=== PATIENT | female | born 1970 | race Caucasian/White ===

== ENCOUNTER 2025-04-09 15:48 | Outpatient (AMB) | payer BC, SELFPAY ==
--- NOTE | 2025-04-09 16:02 | A.OFFPC_ITS ---
Vital Signs 04/09/25 16:07 Height 5 ft 3.78 in Weight 171 lb BMI 29.6 BP 117/67 Respiration 14 Pulse 66 Pulse Source Pulse Oximeter Temp 97.5 F Temp Source Temporal Artery Scan Pulse Oximetry (%) 95 Oxygen Delivery Method Room Air Intake Visit Reasons: establish care Price Lister Required: No Accompanied by: Self / Same As Patient Allergies No Known Allergies Allergy (Verified 04/09/25 16:24) Medication List - Last Reconciled 04/09/25 by Jamila Chase PA-C fexofenadine (Maida Allergy) 180 mg PO DAILY Tobacco use date assessed: 04/09/25 Dental Screening Dental Screen Date: 04/09/25 Did you have a dental visit in the last 12 months?: Yes Did you have a dental problem in the last 6 months where you did not have access to dental care?: No Was dental information given to patient?: Patient has dentist HPI [facility] care HPI Details The patient is a 54-year-old female presenting to [facility]. Has a history of allergies. Maida is her choice of medication for allergy relief. She also presents with a significant history of food allergies, including reactions to avocados, peaches, nectarines, cherries, apples, carrots, and celery, with progressive inability to tolerate them even when cooked. Additionally, lactose intolerance necessitates careful consideration in her diet. The patient denies any chronic diseases such as hypertension, diabetes, or mental health issues, and no family history of colon cancer was reported. She expresses interest in colorectal cancer screening, favoring colonoscopy over other methods. A potential thyroid nodule was perceived upon neck palpation, warranting a diagnostic thyroid ultrasound. 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 - No mention of smoking, alcohol, or jimmy g use. - Patient's diet includes management of food allergies and lactose intolerance. [facility] Medical History (Updated 04/09/25 @ 16:37 by Jamila Chase PA-C) Overweight with body mass index (BMI) of 29 to 29.9 in adult Allergy, food Numerous moles Colon cancer screening History of mammogram Establishing care with new doctor, encounter for Family History Father Cancer Heart problem BP (high blood pressure) Mother No problems noted. Social History Housing: House Alcohol intake: current Alcohol intake frequency: a few times a week Patient Tobacco Use Status: Never used Tobacco service: No Current occupational status: employed Cognitive needs: No Hearing needs: No Vision needs: Yes (rx glasses) Questionnaire PHQ-9 Over the last 2 weeks, how often have you been bothered by any of the following problems? 1. Little interest or pleasure in doing things: not at all 2. Feeling down, depressed, or hopeless: not at all 3. Trouble falling or staying asleep, or sleeping too much: not at all 4. Feeling tired or having little energy: not at all 5. Poor appetite or overeating: not at all 6. Feeling bad about yourself - or that you are a failure or have let yourself or your family down: not at all 7. Trouble concentrating on things, such as reading the newspaper or watching television: not at all 8. Moving or speaking so slowly that other people could have noticed. Or the opposite - being so fidgety or restless that you have been moving around a lot more than usual: not at all 9. Thoughts that you would be better off or of hurting yourself in some way: not at all Total score: 0 Depression Screening Interpretation: Negative Depression Screening Done: Yes 45309 - PHQ-9 Billing: Yes Source: Developed by Drs. Heladio Barriga, Rama Martinez, Alejandro Neil and colleagues, with an educational braulio from [employer]. Thrive Questionnaire Date Thrive assessed: 04/09/25 I am a: Patient What is your living situation today?: I have a steady place to live Within the past 12 months, did the food you bought not last and you didn't have the money to get more?: Never true Within the past 12 months, did you worry whether your food would run out before you got money to buy more?: Never true Do you have trouble paying for medicines?: No Do you have trouble getting transportation to medical appointments?: No Do you have trouble paying your heating and electricity bill?: No Do you have trouble taking care of your child, family member or friend?: No Do you have trouble with day-to-day activities such as bathing, preparing meals, shopping, managing finances, etc.?: No Are you currently unemployed and looking for a job?: No Are you interested in more education?: No Please select the resources that you would like help with: None THRIVE Score: 0 AUDIT C Alcohol Use Questionnaire (AUDIT-C) 1. How often do you have a drink containing alcohol?: 2-3 times a week 2. How many drinks containing alcohol do you have on a typical day when you are drinking?: 1 or 2 3. How often do you have six or more drinks on one occasion?: Never Total Score: 3 Score Reviewed/Action Taken: No RACHID-7 AMB Questionnaire RACHID-7 Date RACHID - 7 assessed: 04/09/25 Feeling nervous, anxious, or on edge: 0 = Not at all Not being able to stop or control worryin = Not at all Worrying too much about different things: 0 = Not at all Trouble relaxin = Not at all Being so restless that it is hard to sit still: 0 = Not at all Becoming easily annoyed or irritable: 0 = Not at all Feeling afraid as if something awful might happen: 0 = Not at all Total RACHID-7 score (0-4 normal; 5-9 mild; 10-14 moderate; 15-21 severe): 0 Source: Developed by Drs. Heladio Barriga, Rama Martinez, Alejandro Neil and colleagues, with an educational braulio from [employer]. RACHID-7 Assessment Billing RACHID-7 Assessment Tool: RACHID-7 Assessment 08452 Review of Systems Const Details: - Gastrointestinal: Denies abdominal pain, black or bloody stools, or weight changes. - Musculoskeletal: Reports occasional cramping, managed with magnesium. - General: Denies chest pain or shortness of breath. Physical exam (Primary Care) Vital Signs: Last Vital Signs Temp 97.5 F 04/09/25 16:07 Pulse 66 04/09/25 16:07 Resp 14 04/09/25 16:07 BP 117/67 04/09/25 16:07 Pulse Ox 95 04/09/25 16:07 Oxygen Delivery Method Room Air 04/09/25 16:07 Care Plan Goal for BP management: <140/90 at Goal BMI result Body Mass Index 29.6 BMI Assessment/Plan discussion: High BMI High, discussed plan: lifestyle, weight reduction, dietary, physical activity and alcohol moderation Tobacco/Smoking Status: Tobacco use Status Tobacco use date assessed 04/09/25 04/09/25 16:04 Patient Tobacco Use Status Never used Tobacco 04/09/25 16:12 PHQ-9: PHQ-9 Score PHQ-9: Total score 0 04/09/25 16:12 Depression Screening Interpretation: Negative Thrive Assessment: Date of Thrive Assessment Date Thrive assessed 04/09/25 04/09/25 16:04 Const Other: Appearance: Alert. Oriented X3. No acute distress. Head: Normal external exam. Normocephalic. Atraumatic. Eyes: Pupils are equal, round, and reactive to light. Extraocular movements intact. Conjunctiva and sclera normal. Eyelids normal. Ears: External auditory canal normal. Tympanic membranes normal. Throat: Pharynx normal. Uvula midline. Moist mucous membranes. Neck: Normal inspection. Neck supple. Full range of motion. No adenopathy. No meningeal signs. Possible thyroid nodule noted. Cardiovascular: Normal heart rate and rhythm. Heart sound normal. No murmurs noted. Pulses normal throughout. Respiratory: No respiratory distress. Painless inspiration. Breath sounds normal. No wheezes/rales/rhonchi noted. Chest nontender. No accessory muscle usage noted or decreased air movement noted. Abdomen: Soft and nontender. Bowel sounds normal in all 4 quadrants. No distention noted. No organomegaly noted. No visible injury noted. Back: No costovertebral angle tenderness. Full range of motion noted. Skin: Skin warm and dry. Normal skin color. Normal skin turgor. No rashes/lesions/lacerations noted. Extremities: No lower extremity edema. Extremities exhibit normal range of motion. Extremities nontender. Neuro: Oriented X 3. No motor deficit. No sensory deficit. Reflexes normal. Coding Level of Care Code New Pt Level 4 (69624) Complex EM visit Add On G2211 Diagnoses Establishing care with new doctor, encounter for Z76.89 Colon cancer screening Z12.11 Numerous moles D22.9 Allergy, food Z91.018 Overweight with body mass index (BMI) of 29 to 29.9 in adult E66.3; Z68.29 Additional Codes PHQ-9 - 03090 - PHQ-9 Billing: Yes ([id number]) RACHID-7 Assessment Billing - RACHID-7 Assessment Tool: RACHID-7 Assessment 86507 ([id number]) Assessment & Plan Assessment & Plan (1) Establishing care with new doctor, encounter for: Code(s): Z76.89 - Persons encountering health services in other specified circumstances Category: Medical (2) Colon cancer screening: Code(s): Z12.11 - Encounter for screening for malignant neoplasm of colon Category: Medical Plan: Will refer to GI for colon cancer screening. (3) Numerous moles: Code(s): D22.9 - Melanocytic nevi, unspecified Category: Medical Plan: Patient with numerous moles will refer to Dermatology. Condition is chronic and stable continue to monitor. (4) Allergy, food: Code(s): Z91.018 - Allergy to other foods Category: Medical Plan: Patient with multiple food allergies. Condition is chronic and stable continue to monitor. (5) Overweight with body mass index (BMI) of 29 to 29.9 in adult: Code(s): E66.3 - Overweight; Z68.29 - Body mass index [BMI] 29.0-29.9, adult Category: Medical Plan: Patient to improve diet and exercise regimen. Condition is chronic and stable will continue to monitor. Plan Plan Patient was informed and verbally consented to the use of an ambient scribe for clinic note documentation during this visit. 1. Allergies Plan: Continued use of Maida, antibiotics for eye symptoms. Credit And Collection Manager consultation if needed. 2. Food Allergies Plan: Avoidance of allergens is advised. No further actions currently planned. 3. Possible Thyroid Nodule Plan: Ultrasound scheduled to investigate. Further action will follow based on findings. During our visit, the patient and I discussed her long-standing history of allergies and food allergies, including her approach to management with [id number] Maida and careful dietary avoidance. No chronic illnesses were identified, and she was informed about the necessity for colon cancer screening, agreeing to a colonoscopy for comprehensive screening. A possible thyroid nodule was palpated, prompting an order for a thyroid ultrasound. I discussed the importance of continued monitoring and potential consultations, pending ultrasound results. Follow-up plans include annual reviews and colonoscopy scheduling, with six-monthly to yearly consultations depending on health status. Orders: Orders Complete Blood Count Auto Diff Today Z00.00 - Encounter for general adult medical examination without abnormal findings Comprehensive [place]. Panel Fast Today Z00.00 - Encounter for general adult medical examination without abnormal findings C Reactive Protein Today Z00.00 - Encounter for general adult medical examination without abnormal findings Lipid Panel Today Z00.00 - Encounter for general adult medical examination without abnormal findings Liver Panel Today Z00.00 - Encounter for general adult medical examination without abnormal findings Vitamin B12 and Folate Today Z00.00 - Encounter for general adult medical examination without abnormal findings Hemoglobin A1c Today Z00.00 - Encounter for general adult medical examination without abnormal findings US thyroid Today E04.1 - Nontoxic single thyroid nodule Magnesium Today Z00.00 - Encounter for general adult medical examination without abnormal findings Vitamin D 25-OH Total Today Z00.00 - Encounter for general adult medical examination without abnormal findings TSH reflex Free T4 Today Z00.00 - Encounter for general adult medical examination without abnormal findings Erythrocyte Sedimentation Rate Today Z00.00 - Encounter for general adult medical examination without abnormal findings Referrals Dermatology Referral D22.9 - Melanocytic nevi, unspecified Gastroenterology Referral Z12.11 - Encounter for screening for malignant neoplasm of colon Patient Instructions: - Continue taking Maida as needed for allergies. - Avoid known food allergens to prevent reaction. - Get the scheduled thyroid ultrasound. - Schedule a colonoscopy as discussed. - Call if experiencing new symptoms or health changes. - Return for follow-up in six months to one year as discussed. - Ensure lab work is completed fasting.
[2025-04-09 16:07] VITALS: BP 117/67; PULSE 66; RESP 14; TEMP 36.4; O2SAT 95; BMI 29.6
== END 2025-04-09 16:33 | disposition home or self-care (01) ==
LOC: HO.HMCSH 15:48
PROVIDERS: PCP Internal Medicine; Visit Provider Physician Assistant Medical
DX: Z76.89 Persons encountering health services in other specified circumstances (principal); Z12.11 Encounter for screening for malignant neoplasm of colon; D22.9 Melanocytic nevi, unspecified; Z91.018 Allergy to other foods; E66.3 Overweight; Z68.29 Body mass index [BMI] 29.0-29.9, adult

== ENCOUNTER → 2025-04-09 15:48 | Outpatient (BNVA) | payer BC, SELFPAY | PROVIDERS: PCP Internal Medicine; Visit Provider Physician Assistant Medical | DX: E73.9 Lactose intolerance, unspecified (principal); D22.9 Melanocytic nevi, unspecified; E66.3 Overweight; Z68.29 Body mass index [BMI] 29.0-29.9, adult; Z91.018 Allergy to other foods; Z76.89 Persons encountering health services in other specified circumstances; Z79.899 Other long term (current) drug therapy | CPT/HCPCS: 96127 ==

== ENCOUNTER 2025-05-08 09:45 | Outpatient (REF) | payer BC, SELFPAY ==
--- NOTE | ~2025-05-08 | US_ITS ---
EXAMINATION: US THYROID CLINICAL INFORMATION: Goiter; nontoxic single thyroid nodule. COMPARISON: None available. TECHNIQUE: Linear transducer grayscale and color Doppler examination with attention to the region of the thyroid. FINDINGS: SIZE: Measurements of the thyroid lobes and nodules are given in sagittal, anteroposterior and transverse dimensions respectively. Right Thyroid Lobe: 4.6 x 1.3 x 1.3 cm, volume 4.1 mL. Parenchyma: The gland echotexture is homogeneous. Thyroid vascularity is normal. Left Thyroid Lobe: 4.3 x 1.1 x 2.1 cm, volume 5.3 mL. Parenchyma: The gland echotexture is homogeneous. Thyroid vascularity is normal. Isthmus: 0.15 cm in maximum AP dimension. There are no nodules present. NODES: No lymphadenopathy is seen in the tissue surrounding the thyroid gland. US/US thyroid IMPRESSION: Normal thyroid ultrasound. Electronically signed by: Alistair Michel MD 05/08/2025 10:21 AM EDT
== END 2025-05-08 09:46 | disposition home or self-care (01) ==
LOC: HO.HMGCX 09:45
PROVIDERS: PCP Internal Medicine; Visit Provider Physician Assistant Medical
DX: E04.1 Nontoxic single thyroid nodule (principal)
CPT/HCPCS: 76536

== ENCOUNTER → 2025-05-08 09:52 | Outpatient (BNV) | payer BC, SELFPAY | PROVIDERS: PCP Internal Medicine; Visit Provider Radiology Diagnostic Radiology | DX: E04.1 Nontoxic single thyroid nodule (principal) | CPT/HCPCS: 76536 ==

== ENCOUNTER 2025-09-24 09:51 | Outpatient (AMB) | payer BC, SELFPAY ==
--- NOTE | 2025-09-24 09:52 | A.OFFVIS_ITS ---
Vital Signs 09/24/25 09:53 Height 5 ft 3.78 in Weight 164 lb 7.437 oz BMI 28.4 BP 119/79 Blood Pressure Location Lt brachial Position Sitting Pulse 91 Intake Visit Reasons: pre colonoscopy Intake Note: Patient new consult for Colonoscopy screening Patient cc: reports no rectal bleeding, reports no rectal pain. Group Managing Director Required: No Accompanied by: Self / Same As Patient Allergies carrot Allergy (Severe, Verified 09/24/25 09:56) Hives celery Allergy (Severe, Verified 09/24/25 09:56) Hives apples Allergy (Severe, Uncoded 09/24/25 09:56) Hives Medication List - Last Reconciled 09/24/25 by Nisreen Bain CNP fexofenadine (Maida Allergy) 180 mg PO DAILY HPI HPI pre colonoscopy: Details: Patient is a 55-year-old female without significant PMH. Referred by PCP for pre colonoscopy screening. This will be Kimberley's first colonoscopy, no or prior stool based colon cancer screening. She reports regular daily bowel movements without concerns for constipation or diarrhea. States appetite is robust; mild intentional weight loss noted (from 171 lbs in March to 164 lbs currently) with recent engagement with running and walking. Occasional mild heartburn occurs infrequently (approximately twice per year), typically food-related, resolving spontaneously or with Tums. Notable comorbidities include prediabetes (A1c 6.1) and borderline hyperlipidemia, both being managed with lifestyle modifications. Patient denies: fever/chills, n/v, appetite changes, regurgitation,dysphasia, unintentional wt loss, ab pain or melena/hematochezia. No history of GI bleeding, recent infections. Social hx: -ETOH use, weekends -denies recreational drug use -non-smoker - family hx as below -denies personal hx of CA -denies significant cardiopulmonary history -tolerated anesthesia in the past without difficulty. [facility] Medical History (Updated 09/24/25 @ 11:55 by Nisreen Bain CNP) Hyperlipemia Prediabetes Overweight with body mass index (BMI) of 29 to 29.9 in adult Allergy, food Numerous moles Colon cancer screening History of mammogram Establishing care with new doctor, encounter for Surgical History H/O section Family History Father Cancer Heart problem BP (high blood pressure) Esophageal cancer Prostate cancer Mother No problems noted. Paternal Aunt Breast cancer Social History Housing: House Alcohol intake: current Alcohol intake frequency: a few times a week Patient Tobacco Use Status: Never used Tobacco service: No Current occupational status: employed Cognitive needs: No Hearing needs: No Vision needs: Yes (rx glasses) Review of Systems Const Reports as per HPI ENT Reports as per HPI Card Reports as per HPI Resp Reports as per HPI GI Reports as per HPI Reports as per HPI Physical Exam Vital Signs: Last Vital Signs Pulse 91 09/24/25 09:53 BP 119/79 09/24/25 09:53 BMI result Body Mass Index 28.4 Const General: healthy appearing, no acute distress and well developed Nutritional Appearance: average body habitus Orientation/consciousness: patient oriented x3 HEENT Head: Yes normal to inspection, Yes normocephalic and Yes atraumatic Face and sinus: Yes normal facial exam Eyes General: appearance normal, both eyes and all related structures Neck Neck: Yes normal visual inspection Resp Effort & Inspection: normal respiratory effort, able to speak in complete sentences, no tracheal deviation and symmetric chest movement Cardio Jugular venous distension: no JVD Neuro General: patient oriented x3 Gait exam (Neuro): Normal gait present Psych Appearance: grossly normal Mental Status: mental status grossly normal Speech and movement: Normal speech and movement present Affect: normal affect Attitude: cooperative Thought process: Normal thought process present Thought content: Normal thought content present Insight: Good insight present (Psych) Judgement: Good judgement present (Psych) Assessment & Plan Assessment & Plan (1) Colon cancer screening: Code(s): Z12.11 - Encounter for screening for malignant neoplasm of colon Category: Medical Plan: Asymptomatic, age-appropriate individual, no concerning GI features, family history negative for colon cancer Additional Testing: Colonoscopy scheduled (Miralax split-dose prep with bisacodyl and clear liquid diet day prior); no further GI workup indicated at this time Medication Management: Prescribed Miralax, bisacodyl for bowel prep (OTC options highlighted) Lifestyle Recommendations: Clear liquid diet the day prior; no red/blue/purple liquids on prep day; NPO x 4h prior to procedure; arrange ride home post- procedure Follow-Up: Routine follow-up only if abnormal findings; otherwise, next CRC screening per guidelines (10 years if normal exam) (2) Prediabetes: Code(s): R73.03 - Prediabetes Category: Medical Plan: A1c 6.1 on recent labs; no current medication therapy Additional Testing: Recommend repeat A1c and metabolic panel ~3 months following lifestyle changes; patient already exercising (running, walking) Medication Management: None currently; continue lifestyle management Lifestyle Recommendations: Emphasize plant-based, whole foods diet, minimize processed and high-sugar foods; maintain regular physical activity Follow-Up:Monitoring through primary care (3) Hyperlipemia: Code(s): E78.5 - Hyperlipidemia, unspecified Category: Medical Qualifiers: Hyperlipidemia type: mixed hyperlipidemia Qualified Code(s): E78.2 - Mixed hyperlipidemia Plan: Borderline elevation in total cholesterol and LDL on recent labs Additional Testing: Repeat lipid panel with routine labs at next primary care visit Medication Management: None; encourage lifestyle modification Lifestyle Recommendations: As above, focus on dietary changes, maintain regular exercise Follow-Up: Annual lipid monitoring through PCP Plan Follow-up as needed Time: I spent a total of 20 minutes on the date of encounter which includes: Preparing to see the patient (reviewed previous documentation, test results and medical history) Performing a medically appropriate exam and/or evaluation Ordering medications, tests, and procedures Documenting clinical information in the health record Orders: Referrals GI Procedure Notification Z12.11 - Encounter for screening for malignant n eoplasm of colon Medications: New bisacodyl Take per colonoscopy instructions 20 mg (4 x 5 mg) PO ONCE 4 tabs 0RF polyethylene glycol 3350 (Miralax) per colonoscopy prep instructions 238 grams PO ONCE 238 grams 0RF Coding Level of Care Code New Pt New Pt Level 2 (95482) Patient Type New Diagnoses Colon cancer screening Z12.11 Prediabetes R73.03 Mixed hyperlipidemia E78.2 Hyperlipidemia type: mixed hyperlipidemia
[2025-09-24 09:53] VITALS: BP 119/79; PULSE 91; BMI 28.4
--- OUTSIDE RECORDS SUMMARY | 2025-09-24 11:10 | XMS_ITS ---
Author Name [facility] Organization Unknown Care Team Organization Name Specialty Phone Email Start Date End [facility] 08/05/2025
== END 2025-09-24 10:22 | disposition home or self-care (01) ==
PROVIDERS: PCP Internal Medicine; Visit Provider Nurse Practitioner Family
DX: Z01.818 Encounter for other preprocedural examination (principal); Z12.11 Encounter for screening for malignant neoplasm of colon; R73.03 Prediabetes; E78.2 Mixed hyperlipidemia
CPT/HCPCS: S0285

== ENCOUNTER 2025-10-07 15:45 | Outpatient (REF) | payer BC, SELFPAY ==
[2025-10-07 19:02] LABS: Appearance Urine Clear; Glucose Urine UA Negative (Negative); PH 5.0 (5.0-9.0); Specific Gravity - Urine 1.010 (1.005-1.025); UMIC TRIGGER UACC YES
[2025-10-07 19:07] LABS: UACC Culture Trigger YES
== END 2025-10-07 15:46 | disposition home or self-care (01) ==
LOC: HO.LAB 15:45
PROVIDERS: PCP Physician Assistant Medical; Visit Provider Physician Assistant Medical
DX: Z00.00 Encounter for general adult medical examination without abnormal findings (principal); Z23 Encounter for immunization; R73.03 Prediabetes; E55.9 Vitamin D deficiency, unspecified; E78.00 Pure hypercholesterolemia, unspecified; Z79.899 Other long term (current) drug therapy; Z13.31 Encounter for screening for depression
CPT/HCPCS: 81001; 81003; 82043; 82570; 83036; 87086; 90471; 90656; 96127

== ENCOUNTER 2025-10-07 15:45 | Outpatient (AMB) | payer BC, SELFPAY ==
--- NOTE | 2025-10-07 15:51 | A.OFFPC_ITS ---
Vital Signs 10/07/25 15:59 Height 5 ft 3.78 in Weight 166 lb BMI 28.7 BP 119/75 Blood Pressure Location Lt brachial Pulse 83 Pulse Source Pulse Oximeter Temp 97.2 F Pulse Oximetry (%) 97 Intake Visit Reasons: 6 month follow up Intake Note: no issues Allergies carrot Allergy (Severe, Verified 10/07/25 16:06) Hives celery Allergy (Severe, Verified 10/07/25 16:06) Hives apples Allergy (Severe, Uncoded 10/07/25 16:06) Hives Medication List - Last Reconciled 10/07/25 by Jamila Chase PA-C bisacodyl 5 mg PO ONCE polyethylene glycol 3350 17 grams PO ONCE Tobacco use date assessed: 04/09/25 Dental Screening Dental Screen Date: 10/07/25 Did you have a dental visit in the last 12 months?: Yes Did you have a dental problem in the last 6 months where you did not have access to dental care?: No Was dental information given to patient?: Patient has dentist HPI HPI Comments History of Present Illness Details History of Present Illness The patient is a 55-year-old female presenting for a six-month follow-up visit. She has encountered issues with her referrals for a colonoscopy and dermatology appointment due to a recent insurance change from a PPO to an HMO. In April, the patient's hemoglobin A1c was 6.1%, indicating prediabetes, despite having lost some weight. A repeat in-office A1c today was 6.3%. The patient acknowledges a recent increase in her bread intake. Other laboratory findings from April were reviewed, including a normal CBC, metabolic panel with normal liver enzymes, and normal vitamin B12 and folate levels. Her total cholesterol was 204 mg/dL with an LDL of 102 mg/dL and a high HDL of 90 mg/dL. Her vitamin D level was noted to be low. Social History - Diet: Reports eating more bread lately but not a lot of pasta. - Exercise: The patient reports she has been running. [facility] Medical History (Updated 10/07/25 @ 16:48 by Jamila Chase PA-C) Health maintenance examination Pure hypercholesterolemia, unspecified Vitamin D deficiency Hyperlipemia Prediabetes Overweight with body mass index (BMI) of 29 to 29.9 in adult Allergy, food Numerous moles Colon cancer screening History of mammogram Establishing care with new doctor, encounter for Surgical History H/O section Family History Father Cancer Heart problem BP (high blood pressure) Esophageal cancer Prostate cancer Mother No problems noted. Paternal Aunt Breast cancer Social History Housing: House Alcohol intake: current Alcohol intake frequency: a few times a week Patient Tobacco Use Status: Never used Tobacco service: No Current occupational status: employed Cognitive needs: No Hearing needs: No Vision needs: Yes (rx glasses) Questionnaire PHQ-9 Over the last 2 weeks, how often have you been bothered by any of the following problems? 1. Little interest or pleasure in doing things: not at all 2. Feeling down, depressed, or hopeless: not at all 3. Trouble falling or staying asleep, or sleeping too much: not at all 4. Feeling tired or having little energy: not at all 5. Poor appetite or overeating: not at all 6. Feeling bad about yourself - or that you are a failure or have let yourself or your family down: not at all 7. Trouble concentrating on things, such as reading the newspaper or watching television: not at all 8. Moving or speaking so slowly that other people could have noticed. Or the opposite - being so fidgety or restless that you have been moving around a lot more than usual: not at all 9. Thoughts that you would be better off or of hurting yourself in some way: not at all Total score: 0 Depression Screening Interpretation: Negative Depression Screening Done: Yes 71987 - PHQ-9 Billing: Yes Source: Developed by Drs. Heladio Barriga, Rama Martinez, Alejandro Neil and colleagues, with an educational braulio from [employer]. Thrive Questionnaire Date Thrive assessed: 04/09/25 I am a: Patient What is your living situation today?: I have a steady place to live Within the past 12 months, did the food you bought not last and you didn't have the money to get more?: Never true Within the past 12 months, did you worry whether your food would run out before you got money to buy more?: Never true Do you have trouble paying for medicines?: No Do you have trouble getting transportation to medical appointments?: No Do you have trouble paying your heating and electricity bill?: No Do you have trouble taking care of your child, family member or friend?: No Do you have trouble with day-to-day activities such as bathing, preparing meals, shopping, managing finances, etc.?: No Are you currently unemployed and looking for a job?: No Are you interested in more education?: No Please select the resources that you would like help with: None THRIVE Score: 0 AUDIT C Alcohol Use Questionnaire (AUDIT-C) 1. How often do you have a drink containing alcohol?: 2-3 times a week 2. How many drinks containing alcohol do you have on a typical day when you are drinking?: 1 or 2 3. How often do you have six or more drinks on one occasion?: Never Total Score: 3 Score Reviewed/Action Taken: No RACHID-7 AMB Questionnaire RACHID-7 Date RACHID - 7 assessed: 04/09/25 Feeling nervous, anxious, or on edge: 0 = Not at all Not being able to stop or control worryin = Not at all Worrying too much about different things: 0 = Not at all Trouble relaxin = Not at all Being so restless that it is hard to sit still: 0 = Not at all Becoming easily annoyed or irritable: 0 = Not at all Feeling afraid as if something awful might happen: 0 = Not at all Total RACHID-7 score (0-4 normal; 5-9 mild; 10-14 moderate; 15-21 severe): 0 Source: Developed by Drs. Heladio Barriga, Rama Martinez, Alejandro Neil and colleagues, with an educational braulio from [employer]. RACHID-7 Assessment Billing RACHID-7 Assessment Tool: RACHID-7 Assessment 08969 Review of Systems Narrative Review of Systems Patient denies any acute symptoms at this time Const All systems reviewed & are unremarkable except as noted in HPI and below Physical exam (Primary Care) Vital Signs: Last Vital Signs Temp 97.2 F 10/07/25 15:59 Pulse 83 10/07/25 15:59 BP 119/75 10/07/25 15:59 Pulse Ox 97 10/07/25 15:59 BMI result Body Mass Index 28.7 Tobacco/Smoking Status: Tobacco use Status Tobacco use date assessed 04/09/25 10/07/25 15:58 Patient Tobacco Use Status Never used Tobacco 10/07/25 15:58 PHQ-9: PHQ-9 Score PHQ-9: Total score 0 10/07/25 16:31 Depression Screening Interpretation: Negative Thrive Assessment: Date of Thrive Assessment Date Thrive assessed 04/09/25 10/07/25 15:58 Narrative Physical Exam Appearance: Alert. Oriented X3. No acute distress. Head: Normal external exam. Normocephalic. Atraumatic. Eyes: Pupils are equal, round, and reactive to light. Extraocular movements intact. Conjunctiva and sclera normal. Eyelids normal. Ears: External auditory canal normal. Tympanic membranes normal. Throat: Pharynx normal. Uvula midline. Moist mucous membranes. Neck: Normal inspection. Neck supple. Full range of motion. No adenopathy. Thyroid Normal. No meningeal signs. No neck mass noted. Cardiovascular: Normal heart rate and rhythm. Heart sound normal. No murmurs noted. Pulses normal throughout. Respiratory: No respiratory distress. Painless inspiration. Breath sounds normal. No wheezes/rales/rhonchi noted. Chest nontender. No accessory muscle usage noted or decreased air movement noted. Abdomen: Soft and nontender. Bowel sounds normal in all 4 quadrants. No distention noted. No organomegaly noted. No visible injury noted. Back: No costovertebral angle tenderness. Full range of motion noted. Skin: Skin warm and dry. Normal skin color. Normal skin turgor. No rashes/lesions/lacerations noted. Extremities: No lower extremity edema. Extremities exhibit normal range of motion. Extremities nontender. Neuro: Oriented X 3. No motor deficit. No sensory deficit. Reflexes normal. Office Procedures Flu Questionnaire Does the patient have a severe egg allergy?: No Does the patient have severe life threatening allergies?: No Does the patient have a fever or illness today?: No Has the patient ever had Guillain-Lowes Syndrome?: No Has the patient ever had any past reaction to a flu shot?: No Results AMB Hemoglobin A1c AMB Hemoglobin A1c 6.3 % Last Edit by JINA Fuentes on 10/07/25 16:26 Immunizations Fluarix [id number] (PF) 45 mcg (15 mcg x 3)/0.5 mL IM syringe Performing Provider: Jamila Chase PA-C Performing Location: [facility] Documented (not given) by: Linnea Sullivan on 10/07/25 15:58 Dose Route Admin Location Dispensed Lot Number Expiration Date [employer] 0.5 mL IM mL VIS Given Date VIS Provided VIS Publication Date 10/07/25 Single Vaccine 24 Eligibility Eligibility Date Funding Source Results Reviewed Results Reviewed: Laboratory Last Values Hgb A1c (Clinic) 6.3 % (4.0-6.0) H 10/07/25 16:14 Results - Lab results (from [facility] in April) reviewed: - CBC: Normal, no anemia. - Comprehensive Metabolic Panel: Glucose, BUN, creatinine, electrolytes, and liver function tests were all normal. - Lipid Panel: Total cholesterol 204 mg/dL, LDL 102 mg/dL, HDL 90 mg/dL. - Vitamin B12 and Folate: Normal. - Hemoglobin A1c: 6.1%. - Vitamin D: Low. - In-office tests (today): - Hemoglobin A1c: 6.3%. - Tests ordered: - Urinalysis: To check for glucose, blood, or protein. Coding Level of Care Code Est Pt Level 4 (23169) Complex EM visit Add On G2211 Diagnoses Prediabetes R73.03 Vitamin D deficiency E55.9 Pure hypercholesterolemia, unspecified E78.00 Health maintenance examination Z00.00 Additional Codes RACHID-7 Assessment Billing - RACHID-7 Assessment Tool: RACHID-7 Assessment 76516 ([id number]) PHQ-9 - 30137 - PHQ-9 Billing: Yes ([id number]) Time Spent (min) 60 Assessment & Plan Assessment & Plan (1) Prediabetes: Code(s): R73.03 - Prediabetes Category: Medical Plan: The patient's hemoglobin A1c has increased from 6.1% in April to 6.3% today, bringing her closer to the diagnostic threshold for diabetes. This is concerning, particularly as it has occurred despite weight loss and may be related to an increased intake of carbohydrates such as bread. The patient has opted to defer pharmacotherapy and will focus on dietary modification. She will be re-evaluated in three months with a repeat A1c. If there is no improvement, further workup for other causes, such as a genetic predisposition, may be considered. A urinalysis was ordered to screen for glucosuria, hematuria, or proteinuria. (2) Vitamin D deficiency: Code(s): E55.9 - Vitamin D deficiency, unspecified Category: Medical Plan: The patient's lab work revealed a low vitamin D level. A vitamin D supplement or a daily multivitamin was recommended, and the patient agreed to purchase an ov [id number] product. (3) Pure hypercholesterolemia, unspecified: Code(s): E78.00 - Pure hypercholesterolemia, unspecified Category: Medical Plan: The patient's total cholesterol and LDL are borderline high at 204 mg/dL and 102 mg/dL, respectively. However, with a high, protective HDL of 90 mg/dL, no pharmacological intervention is warranted at this time. (4) Health maintenance examination: Code(s): Z00.00 - Encounter for general adult medical examination without abnormal findings Category: Medical Plan: The patient had issues with previous referrals for a screening colonoscopy and a dermatology visit due to an insurance change from O to HMO. New referrals for both the colonoscopy and dermatology appointment at [facility] were reissued and submitted to the new insurance. The patient was given printed copies of the new referrals. Plan Plan Patient was informed and verbally consented to the use of an ambient scribe for clinic note documentation during this visit. 1. Prediabetes The patient's hemoglobin A1c has increased from 6.1% in April to 6.3% today, bringing her closer to the diagnostic threshold for diabetes. This is concerning, particularly as it has occurred despite weight loss and may be related to an increased intake of carbohydrates such as bread. The patient has opted to defer pharmacotherapy and will focus on dietary modification. She will be re-evaluated in three months with a repeat A1c. If there is no improvement, further workup for other causes, such as a genetic predisposition, may be considered. A urinalysis was ordered to screen for glucosuria, hematuria, or proteinuria. 2. Vitamin D Deficiency The patient's lab work revealed a low vitamin D level. A vitamin D supplement or a daily multivitamin was recommended, and the patient agreed to purchase an izzh-rwp-jvqkkko product. 3. Hypercholesterolemia The patient's total cholesterol and LDL are borderline high at 204 mg/dL and 102 mg/dL, respectively. However, with a high, protective HDL of 90 mg/dL, no pharmacological intervention is warranted at this time. 4. Health Maintenance The patient had issues with previous referrals for a screening colonoscopy and a dermatology visit due to an insurance change from PPO to HMO. New referrals for both the colonoscopy and dermatology appointment at [facility] were reissued and submitted to the new insurance. The patient was given printed copies of the new referrals. Discussion Notes I reviewed the recent lab results with the patient. I explained that while most of her labs, including her lipid panel, were reassuring, her hemoglobin A1c has risen from 6.1% to 6.3%, indicating worsening prediabetes. We discussed that she is now very close to the diagnostic threshold for type 2 diabetes. We discussed that this increase may be related to her diet, specifically an increase in bread consumption. We discussed the options of starting medication versus attempting lifestyle changes. The patient and I agreed to defer medication and focus on dietary modification for the next three months, after which we will recheck her A1c. I also discussed her low vitamin D level and recommended an [id number]-[id number] supplement, which she agreed to take. I addressed her need for new referrals for her colonoscopy and dermatology appointments due to an insurance change, and I provided these for her. I instructed her to follow up in three months. Orders: Orders Influenza [id number] Immunization Today Z23 - Encounter for immunization AMB Hemoglobin A1c Today R73.03 - Prediabetes UA CC w/rflx Micro + Cult Today Z00.00 - Encounter for general adult medical examination without abnormal findings Microalbumin, Random (w Creat) Today E11.9 - Type 2 diabetes mellitus without complications Referrals Gastroenterology Referral Z12.11 - Encounter for screening for malignant neoplasm of colon Dermatology Referral D22.9 - Melanocytic nevi, unspecified, Z91.018 - Allergy to other foods Medications: New Fluarix [id number] (PF) (flu vac ts 2024-(6mos up)-PF) 0.5 mL IM ONCE 0.5 mL 0RF NS Z23 - Encounter for immunization Patient Instructions: Patient Instructions - Make an effort to reduce your intake of carbohydrates, such as bread and pasta, to help lower your blood sugar. - Begin taking an gehh-tze-oigtfie vitamin D supplement or a daily multivitamin for your low vitamin D level. - Use the new referral papers provided to schedule your colonoscopy and de rmatology appointments. - You will need to provide a urine sample today before you leave. - Please schedule a follow-up appointment to return to the clinic in three months for a repeat A1c blood test.
[2025-10-07 15:59] VITALS: BP 119/75; PULSE 83; TEMP 36.2; O2SAT 97; BMI 28.7
== END 2025-10-07 16:30 | disposition home or self-care (01) ==
LOC: HO.HMCSH 15:45
PROVIDERS: PCP Physician Assistant Medical; Visit Provider Physician Assistant Medical
DX: R73.03 Prediabetes (principal); E55.9 Vitamin D deficiency, unspecified; E78.00 Pure hypercholesterolemia, unspecified; Z00.00 Encounter for general adult medical examination without abnormal findings; Z23 Encounter for immunization